=== PATIENT | female | born 1965 | race Caucasian/White ===

== ENCOUNTER 2018-02-02 20:49 | Emergency (ER) | payer OTHER ==
[~2018-02-02] VITALS: Ht 154.9 cm; Wt 62.6 kg
[2018-02-02 20:56] VITALS: BP 135/82
--- NOTE | 2018-02-02 21:06 | ED GENERAL ADULT ---
History of Present Illness General Chief Complaint: Upper Extremity Problem Stated Complaint: RIGHT ARM PAIN X 4 DAYS PER PT Source: patient Exam Limitations: no limitations Allergies Coded Allergies: No Known Allergies (02/02/18) Triage Note: PT TO TRIAGE WITH R ARM PAIN SHOULDER TO FINGER TIPS X4 DAYS. DENIES HEAVY LIFTING, FALL. DENIES CP. DENIES NUMBNESS/TINGLING. TRIED MOTRIN, TYLENOL, AND HEAT WITHOUT AFFECT. REFUSED MED IN TRIAGE. +ROM. Triage Nurses Notes Reviewed? yes Onset: Abrupt Duration: day(s): (3), constant Timing: recent history Injury Environment: home HPI: 52-year-old female comes into the emergency room with constant right shoulder pain. Patient reports it feels deep inside. Radiates down to her fingers. Denies any shortness of breath. She reports that she had a D&C recently and admits to some S pain after the D&C better. Denies any diaphoresis vomiting. (Osbaldo Griggs) Vital Signs & Intake/Output Vital Signs & Intake/Output Vital Signs Date Time Temp Pulse Resp B/P B/P Pulse O2 O2 Flow FiO2 Mean Ox Delivery Rate 02/02 2233 Room Air 02/02 2056 95.9 85 18 135/82 96 Room Air ED Intake and Output 02/03 0000 02/02 1200 Intake Total 0 Output Total Balance 0 Intake, Oral 0 Patient 138 lb Weight Reconcile Medications Cyclobenzaprine HCl 10 MG TABLET 1 TAB PO TID SPASMS Ibuprofen 800 MG TABLET 1 TAB PO TID PAIN Prednisone 50 MG TABLET 1 TAB PO DAILY CERVICAL RADIULAOPTHY (Ruthann KAHN,Seb Meredith) Past History Travel History Traveled to [place] past 21 day No Medical History Any Pertinent Medical History? see below for history Neurological: NONE EENT: NONE Cardiovascular: hyperlipidemia Respiratory: NONE Gastrointestinal: NONE Hepatic: NONE Renal: NONE Musculoskeletal: NONE Psychiatric: anxiety Endocrine: NONE Blood Disorders: NONE Cancer(s): NONE GAG WRITER/Reproductive: NONE Surgical History Surgical History: non-contributory Psychosocial History What is your primary language [place]atian Tobacco Use: Never used ETOH Use: occasional use Family History Hx Contributory? No (Osbaldo Griggs) Review of Systems Review of Systems Constitutional: Reports: no symptoms. EENTM: Reports: no symptoms. Respiratory: Reports: no symptoms. Cardiovascular: Reports: see HPI. GI: Reports: no symptoms. Genitourinary: Reports: no symptoms. Musculoskeletal: Reports: see HPI. Skin: Reports: no symptoms. Neurological/Psychological: Reports: no symptoms. Hematologic/Endocrine: Reports: no symptoms. Immunologic/Allergic: Reports: no symptoms. All Other Systems: Reviewed and Negative (Osbaldo Griggs) Physical Exam Physical Exam General Appearance: well developed/nourished, no apparent distress, alert, awake Head: atraumatic, normal appearance Eyes: Bilateral: normal appearance, EOMI. Ears, Nose, Throat: normal ENT inspection, hearing grossly normal Neck: normal inspection Respiratory: normal breath sounds, no respiratory distress Cardiovascular: regular rate/rhythm Gastrointestinal: soft Back: normal inspection Extremities: normal inspection, normal range of motion, NO SOFT TISSUE TENDERNESS RIGHT SHOULDER, FULL RANGE OF MOTION, Neurologic/Psych: awake, alert, oriented x 3 Skin: intact, normal color Core Measures ACS in differential dx? No CVA/TIA Diagnosis: No Sepsis Present: No Sepsis Focused Exam Completed? No (Osbaldo Griggs) Progress Differential Diagnoses I considered the following diagnoses in my evaluation of the patient: Muscle strain, TN, Diagnostic Imaging: Viewed by Me: Radiology Read. Discussed w/RAD: Radiology Read. Radiology Impression: PATIENT: JAYCOB MCGRATH PRESENT AGE: 52 PATIENT ACCOUNT NO: [id number] : 65 LOCATION: [facility] ORDERING PHYSICIAN: Osbaldo VALENTINE SERVICE DATE: 02/02/18 EXAM TYPE : RAD - XRY-CHEST XRAY, TWO VIEWS EXAMINATION: XR CHEST CLINICAL INFORMATION: Upper chest pain. COMPARISON: None TECHNIQUE: 2 views of the chest were obtained. FINDINGS: No significant abnormality is noted involving the heart, lungs, mediastinum, bony thorax or soft tissues. IMPRESSION: Unremarkable examination. DICTATED BY: Ab Gomes MD DATE/TIME DICTATED:02/02/182202 COMPOSITION MIXER:CALLIE DATE/TIME TRANSCRIBED:02/02/182202 CONFIDENTIAL, DO NOT COPY WITHOUT APPROPRIATE AUTHORIZATION. <Electronically signed in Other Vendor System> SIGNED BY: Ab Gomes MD 02/02/182206, PATIENT: JAYCOB CMGRATH PRESENT AGE: 52 PATIENT ACCOUNT NO: [id number] : 65 LOCATION: [facility] ORDERING PHYSICIAN: Osbaldo VALENTINE SERVICE DATE: 02/02/18 EXAM TYPE: RAD - XRY-SHOULDER COMPLETE-RIGHT EXAMINATION: XR SHOULDER, RIGHT CLINICAL INFORMATION: Right shoulder pain COMPARISON: None TECHNIQUE: Three views of the right shoulder. FINDINGS: The bones and soft tissues are normal. No fracture. Glenohumeral and acromioclavicular alignment is anatomic with normal joint space. No abnormal soft tissue calcifications. IMPRESSION: Normal right shoulder. DICTATED BY: Ab Gomes MD DATE/TIME DICTATED:02/02/182201 COMPOSITION MIXER:CALLIE DATE/TIME TRANSCRIBED:02/02/182201 CONFIDENTIAL, DO NOT COPY WITHOUT APPROPRIATE AUTHORIZATION. <Electronically signed in Other Vendor System> SIGNED BY: Ab Gomes MD 02/02/182206 Initial ED EKG: normal sinus rhythm, rate (71), nonspecific ST T wave chg Hand-Off Endorsed To: Ruthann KAHN,Seb Meredith Endorsed Time: 2242 Pending: EKG, labs (Pete VALENTINE,Osbaldo) Plan of Care: Orders Procedure Date/time Status EKG 02/03 0000 Active TROPONIN LEVEL 02/02 2105 Complete COMPREHENSIVE METABOLIC PANEL 02/02 2105 Complete CBC WITHOUT DIFFERENTIAL 02/02 2105 Complete EKG 02/02 2105 Active Laboratory Tests 02/03/18 0000: Troponin I Cancelled 02/02/182132: Anion Gap 6, Estimated GFR > 60, BUN/Creatinine Ratio 31.4 H, Glucose 68, Calcium 8.6, Total Bilirubin < 0.1 L, AST 14, ALT 26, Alkaline Phosphatase 41, Troponin I < 0.01, Total Protein 5.9 L, Albumin 3.5, Globulin 2.4, Albumin/ Globulin Ratio 1.5, CBC w Diff NO MAN DIFF REQ, RBC 3.87 L, MCV 85.3, MCH 28.7, MCHC 33.6, RDW 13.7, MPV 8.5, Gran % 53.7, Lymphocytes % 33.8, Monocytes % 9.9 H, Eosinophils % 2.0, Basophils % 0.6, Absolute Granulocytes 3.0, Absolute Lymphocytes 1.9, Absolute Monocytes 0.5, Absolute Eosinophils 0.1, Absolute Basophils 0 Comments: 02/02/2018 11:30:33 PM 02/02/2018 11:30:38 PM patient signed out to me by SERGE at shift manager exchange. I have reevaluated this patient at the request of her daughter was concerned that she has metastatic cancer to the area of her right shoulder. The daughter states that the patient had uterine cancer although the patient herself denies this. She does refer a past history of disc disease in the cervical spine. She feels that this is likely the underlying cause of her pain. Upon physical examination the patient has a good strong hand grasp and normal distal pulses. Sensation to light touch is intact. Deep tendon reflexes are normal. There is no indication clinically of lymphadenopathy of the cervical spine, supra and infraclavicular areas, the axilla or the antecubital fossa of the right upper extremity. The patient has politely declined repeat troponin and wishes to return home. Her daughter was adamant about obtaining an MRI scan but I have advised her that this is unavailable currently at [facility]. I notified her that the plain x-rays show no bony lesions. (Ruthann KAHN,Seb Meredith) Departure Departure Disposition: HOME OR SELF CARE Condition: Stable Clinical Impression Primary Impression: Right shoulder pain Referrals: Juan Francisco KAHN,Hemal Meredith (PCP/Family) Departure Forms: Customer Survey General Discharge Information Prescriptions: Current Visit Scripts Prednisone 1 TAB PO DAILY #5 TAB Cyclobenzaprine HCl 1 TAB PO TID #30 TAB Ibuprofen 1 TAB PO TID #30 TAB (Osbaldo Griggs) Departure Additional Instructions: Take prednisone, ibuprofen, Flexeril as prescribed. Follow-up with your primary care doctor on Monday for possible outpatient MRI of the neck or shoulder. Please go over all results of today's visit with your primary care doctor. Contact your primary care doctor to let them know you were here in the emergency room. There may be nonspecific findings which may not be related to your visit today here in the emergency room but may require further evaluation and chronic monitoring by your primary care doctor. If you had a laceration today the chance of foreign body always remains. You should follow-up with your primary care doctor for recheck in 3-5 days for a wound check. If you had an x-ray done there is a chance that a fracture could have been missed on initial read and you should follow-up with your primary care doctor for repeat x-rays if symptoms persist. If your blood pressure was elevated here in the emergency room please have rechecked by huyen primary care doctor within the next 48. If you were prescribed a narcotic here in the emergency room or any type of controlled substances you're not allowed to drive while taking this medication or operate any type of heavy machinery. Narcotics can make you feel lightheaded dizziness nausea and can cause constipation. You may need to sampler pickup a stool softener. Thank you for choosing [facility] emergency room. Please return to the emergency room immediately if you have any other concerns worsening of symptoms. PA/MACHINE EGG WASHER Co-Sign Statement Statement: ED Attending supervision documentation- [X] I saw and evaluated the patient. I have also reviewed all the pertinent lab results and diagnostic results. I agree with the findings and the plan of care as documented in the PA's/MACHINE EGG WASHER's documentation. [] I have reviewed the ED Record and agree with the PA's/MACHINE EGG WASHER's documentation. [] Additions or exceptions (if any) to the PAs/MACHINE EGG WASHER's note and plan are summarized below: [] (Ruthann KAHN,Seb Meredith) Critical Care Note Critical Care Note Critical Care Time: non-applicable (Ruthann KAHN,Seb Meredith)
--- NOTE | 2018-02-02 22:07 | RADIOLOGY REPORT ---
EXAMINATION: XR SHOULDER, RIGHT CLINICAL INFORMATION: Right shoulder pain COMPARISON: None TECHNIQUE: Three views of the right shoulder. FINDINGS: The bones and soft tissues are normal. No fracture. Glenohumeral and acromioclavicular alignment is anatomic with normal joint space. No abnormal soft tissue calcifications. IMPRESSION: Normal right shoulder.
--- NOTE | 2018-02-02 22:07 | RADIOLOGY REPORT ---
EXAMINATION: XR CHEST CLINICAL INFORMATION: Upper chest pain. COMPARISON: None TECHNIQUE: 2 views of the chest were obtained. FINDINGS: No significant abnormality is noted involving the heart, lungs, mediastinum, bony thorax or soft tissues. IMPRESSION: Unremarkable examination.
[2018-02-02 22:17] LABS: ABSOLUTE BASOPHIL COUNT 0 /CUMM (0.0-0.2); ABSOLUTE EOSINOPHIL COUNT 0.1 /CUMM (0.0-0.7); ABSOLUTE LYMPH COUNT 1.9 /CUMM (1.2-3.4); ABSOLUTE MONOCYTE COUNT 0.5 /CUMM (0.10-0.60); BASOPHIL % 0.6 % (0.0-2.0); GRANULOCYTE % 53.7 % (42.2-75.2); MEAN CORPUSCULAR HGB 28.7 PG (27.0-31.0); MEAN CORPUSCULAR HGB CONC 33.6 G/DL (33.0-37.0); MEAN CORPUSCULAR VOLUME 85.3 FL (81.0-99.0); MEAN PLATELET VOLUME 8.5 FL (7.4-10.4); PLATELET COUNT 285 /CUMM (130-400); RBC DISTRIBUTION WIDTH 13.7 % (11.5-14.5); RED BLOOD CELL CT 3.87 /CUMM (4.20-5.40); WHITE BLOOD CELL COUNT 5.5 /CUMM (4.8-10.8)
[2018-02-02] MEDS ORDERED: PREDNISONE50 M1 PO (22:44)
[2018-02-02] MEDS ORDERED: CYCLOBENZAPRINE10 M1 PO (22:44)
[2018-02-02] MEDS ORDERED: IBUPROFEN800 M1 PO (22:44)
== END 2018-02-03 ==
LOC: ERH 20:49
PROVIDERS: Physician Assistant Medical
DX: M25.511 Pain in right shoulder (principal); F41.9 Anxiety disorder, unspecified
CPT/HCPCS: 71046; 73030-RT; 93005; 93010; 96372; J1885